=== PATIENT | female | born 1990 | race Caucasian/White ===

== ENCOUNTER 2016-08-28 23:02 | Inpatient (IN) | payer MEDICAID ==
[~2016-08-28] VITALS: Ht 162.6 cm; Wt 98.1 kg
[2016-08-28 23:20] VITALS: Ht 162.6 cm; Wt 98.1 kg
[2016-08-28] MEDS ORDERED: FERR325C PO (23:20)
[2016-08-28] MEDS ORDERED: PRENAT PO (23:20)
[2016-08-28] MEDS ORDERED: CALC600T5 PO (23:20)
[2016-08-28 23:21] VITALS: BP 129/72; PULSE 84; RESP 18
[2016-08-29] MEDS ORDERED: LIDOCAINE 1% (MPF) 30 ML INJ INJ PRN
[2016-08-29] MEDS ORDERED: BUTORPHANOL 2 MG INJ IV PRN
[2016-08-29] MEDS ORDERED: OXYTOCIN 30 UNITS/LR 500 ML IV SCH ×2
--- NOTE | 2016-08-29 00:10 | TRIAGE ---
OB Triage Datetime Report Generated by CPN: 08/29/2016 00:10 Datetime: 08/28/2016 23:35 Stage of : OB Triage Temperature Route: Oral Labor Evaluation Frequency: 4-5 Monitor Mode: External Duration (sec)2399: 80-150 Quality: Moderate Pattern: Normal: <= 5 Contractions in 10 Minutes Resting Tone [place]: Relaxed Heart Rate FHR Baseline Rate: 150 Monitor Mode: External US Variability: Moderate 6-25 bpm Accelerations: 15X15 Decelerations: None Category: Category I Pain Assessment Pain Scale: 6 Pain Presence: Intermittent Pain Type: Cramping; Pressure Pain Location: Abdomen Pain Relief Measures: Comfort Measures Datetime: 08/28/2016 23:23 Time of Arrival: 08/28/2016 23:23 EGA: 39.1 Arrived By: Wheelchair Arrived From: Home Chief Complaint: CXS FOR 2 DAYS, STRONGER SINCE 1999 Movement: Present Contractions: Regular Time Contractions Began: 08/28/2016 20:00 Contractions: Q5M Rupture of Membranes: Denies Vaginal Discharge: Denies Provider Notified: ROMY Initial Plan: EFM, ASSESSMENT, CALL MD FOR ORDE ERS Vaginal Exam Dilatation (cms): 4.0 Effacement (%): 50 Station: -2 Exam By: TAVARES Vaginal Bleeding: None Cervix, Consistency: Soft Cervix, Position: Anterior Presentation 'A': Cephalic Datetime: 08/28/2016 23:20 Assessment Type: Triage Maternal Assessment Level of Consciousness: Fully Conscious DTR's/Clonus: DTRs 2+; No Clonus Headache: Denies Blurred Vision: No Respiratory Effort: Unlabored; Regular Rhythm; Equal Expansion Breath Sounds, Left: Clear and Equal Breath Sounds, Right: Clear and Equal Nausea/Vomiting: Denies RUQ Epigastric Pain: Denies Lower Extremities Edema: None Upper Extremities Edema: None Facial Edema: None Fall Risk Assessment History of Falling: (0) No Secondary Diagnosis: (0) No Ambulatory Aid: (0) Bedrest/Nurse Assist IV Therapy: (0) No Gait: (0) Normal/Bedrest/Immobile Mental Status: (0) Oriented to Own Ability Fall Score: 0 Fall Risk Score Definition: No Risk: No action required Datetime: 08/28/2016 23:06 Membrane Status: Intact
[2016-08-29] MEDS: LACTATED RINGER'S 1,000 ML IV SCH ×4 (00:17→09:13)
[2016-08-29 00:51] LABS: ADD SCAN DIFF NO
[2016-08-29 00:53] LABS: BASOPHILS % 0.3 % (0.0-2.0); EOSINOPHILS # 0.1 10^3/ul (0.0-0.5); HEMATOCRIT 39.5 % (37.0-47.0); HEMOGLOBIN 13.2 g/dl (12.0-16.0); LYMPHOCYTES # 3.3 10^3/ul (0.8-2.9); LYMPHOCYTES % 23.8 % (15.0-51.0); MEAN CORPUSCULAR HGB CONC 33.4 g/dl (32.0-37.0); MEAN CORPUSCULAR VOLUME 80.8 fl (82.0-101.0); MEAN PLATELET VOLUME 10.7 fl (7.4-10.4); MONOCYTE # 1.1 10^3/ul (0.3-0.9); MONOCYTES % 7.9 % (0.0-11.0); NEUTROPHIL # 8.9 10^3/ul (1.6-7.5); NEUTROPHILS % 65.3 % (39.0-77.0); PLATELET COUNT 251 10^3/UL (140-415); RED BLOOD COUNT 4.89 10^6/ul (4.20-5.40); RED CELL DISTRIBUTION WIDTH 14.5 % (11.5-14.5); WHITE BLOOD COUNT 13.7 10^3/ul (4.8-10.8)
[2016-08-29 01:05] LABS: INR 0.93; PROTIME 12.5 Sec (12.2-14.2)
[2016-08-29 01:06] LABS: PARTIAL THROMBOPLASTIN TIME 26.4 Sec (25.0-35.0)
[2016-08-29] MEDS: ACETAMINOPHEN 325 MG TAB PO PRN ×2 (01:56→13:03)
[2016-08-29] MEDS ORDERED: LACTATED RINGER'S 1,000 ML IV PRN (02:00)
[2016-08-29] MEDS ORDERED: FENTAnyl 2MCG/ML-ROPIV 0.2% 100 ML ONE (02:21)
[2016-08-29] MEDS ORDERED: DIPHENHYDRAMINE 50 MG INJ IV PRN (05:00)
[2016-08-29] MEDS ORDERED: NALOXONE (0.4 MG/ML) INJ IV PRN (05:00)
[2016-08-29] MEDS ORDERED: ONDANSETRON 4 MG INJ IV PRN (05:00)
[2016-08-29] MEDS ORDERED: FENTAnyl 2MCG/ML-ROPIV 0.2% 100 ML BAG EPI SCH (05:00)
[2016-08-29] MEDS ORDERED: AMPICILLIN 2 GM/NS (PMX) 100 ML IVPB ONE (08:30)
[2016-08-29] MEDS ORDERED: GENTAMICIN 120 MG/NS (PMX) 100 ML IVPB STA (08:56)
[2016-08-29] MEDS ORDERED: CLINDAMYCIN 900 MG INJ IM ONE (09:30)
[2016-08-29] MEDS ORDERED: CLINDAMYCIN 900 MG/D5W (PMX) 50 ML IVPB SCH (09:30)
--- NOTE | 2016-08-29 09:48 | PN ---
Date/Time of Note Date/Time of Note DATE: 08/29/16 TIME: 09:42 OB Subjective Subjective Subjective Patient is 2 para 1 at 39+ weeks of gestation in active labor I was called to evaluate the patient for tachycardia of 180s heart rate with variable deceleration, no evidence of late deceleration, moderate variability Cervical exam 8 cm per nurse [place] regular every 2-3 minutes OB Objective HEENT: WNL Heart: Rhythm Normal Abdomen: WNL Cervical Dilatation: 8cm Membranes: Ruptured Accelerations: Accelerations Present Decelerations: Variable Decelerations Varibility: Moderate Contractions on Admission: < 5 Minutes Apart OB Assessment/Plan Reason for admission: active labor Other Assessment: Patient is in active labor with suspected chorioamnionitis Other plan: Internal scalp electrode placed Bolus 1 L of IV fluid Start triple antibiotics (amp/gent/clindamycin) SHERITA EVANS MD Aug 29, 2016 09:48
--- NOTE | 2016-08-29 10:49 | HP ---
Date/Time of Note Date/Time of Note DATE: 08/29/16 TIME: 10:47 OB - History Hx of Present Chief Complaint: contractions Estimated Due Date: September 11, 2016 : 2 Para: 1 Spontaneous : 0 Therapeutic : 0 Care: Good Care Ultrasounds: Normal mid trimester US Obstetrical Complications: None Medical Complications: None Past Family/Social History * Past Medical, Surgical, Family and Obstetric Histories reviewed from chart. GBS Status: Negative OB Admission Exam Vital Signs Vital Signs Vital Signs Date Time Temp Pulse Resp B/P Pulse Ox O2 Delivery O2 Flow Rate FiO2 08/28/16 23:21 98.0 84 18 129/72 Room Air Physical Exam HEENT: WNL Heart: Rhythm Normal Lungs: Clear Abdomen: WNL Extremities: Normal Cervical Dilatation: 4cm Effacement: 50% Station: -1 Heart Rate: 140's Varibility: Moderate Last 72 hours Lab Results CBC & BMP 08/28/16 23:50 OB Assessment/Plan Reason for admission: active labor Plan: Expectant Management JESSICA STANTON MD Aug 29, 2016 10:49
[2016-08-29] MEDS ORDERED: AMPICILLIN 1 GM/NS (PMX) 50 ML IVPB SCH (12:00)
--- NOTE | 2016-08-29 12:44 | LDN ---
Date/Time of Note Date/Time of Note DATE: 08/29/16 TIME: 12:42 Delivery Summary Weeks of Gestation 38 weeks and 1 day Placenta Delivered: Spontaneously Meconium: Light Episiotomy: No Perineal laceration: 0 Anesthesia type: Epidural Estimated blood loss: 300 Sponge & Needle done & correct: Yes All needle counts correct: Yes Any foreign bodies felt in the: No Problems: Infant Delivery Information Sex Infant Sex: male Apgars 1 Minute: 8 5 Minute: 9 Suctioning Nose & mouth suctioned at tej: Yes Delee suction performed: No Umbilical Cord Cord presentations: nuchal cord Nuchal cord present X: 1 Cord Blood was obtained: Yes Mother & Baby Disposition Disposition Mom & Baby to Maternity; Good: Yes JESSICA STANTON MD Aug 29, 2016 12:44
[2016-08-29 14:30] VITALS: BP 121/68; PULSE 97; RESP 18
[2016-08-29] MEDS ORDERED: DIBUCAINE 1% 30 GM OINT TOP PRN (14:30)
[2016-08-29] MEDS ORDERED: WITCH HAZEL/GLYCERIN PAD PR PRN (14:30)
[2016-08-29] MEDS ORDERED: ACETAMINOPHEN 325 MG TAB PO PRN (14:30)
[2016-08-29] MEDS ORDERED: CARBOPROST 250 MCG INJ IM PRN ×2 (14:30)
[2016-08-29] MEDS ORDERED: METHYLERGONOVINE 0.2 MG INJ IM PRN ×2 (14:30)
[2016-08-29] MEDS ORDERED: BENZOCAINE 20% 56 ML SPRAY TOP PRN (14:30)
[2016-08-29] MEDS ORDERED: OXYTOCIN 30 UNITS/LR 500 ML IV PRN ×2 (14:30)
[2016-08-29] MEDS ORDERED: LANOLIN 7 GM TUBE TOP PRN (14:30)
[2016-08-29] MEDS ORDERED: MISOPROSTOL 200 MCG TAB PR PRN ×2 (14:30)
[2016-08-29 15:00] VITALS: BP 116/57; PULSE 112; RESP 18
[2016-08-29 15:33] VITALS: BP_SYST 115; PULSE 112
[2016-08-29 16:00] VITALS: BP 112/61; PULSE 102; RESP 18
[2016-08-29] MEDS ORDERED: GENTAMICIN 80 MG/NS (PMX) 50 ML IVPB SCH (17:00)
[2016-08-29] MEDS: LACTATED RINGER'S 1,000 ML IV* SCH ×2 (17:42→22:03)
[2016-08-29] MEDS: IBUPROFEN 600 MG TAB PO SCH ×2 (17:43→23:56)
[2016-08-29] MEDS: AMPICILLIN/SULB 3 GM/NS (PMX) 100 ML IVPB SCH ×2 (17:43→23:56)
[2016-08-29 19:50] VITALS: BP 111/58; PULSE 98; RESP 19
[2016-08-29] MEDS: SENNA/DOCUSATE NA (8.6MG/50MG) TAB PO SCH (21:12)
[2016-08-30 00:05] VITALS: BP 102/57; PULSE 91; RESP 19
[2016-08-30 04:05] VITALS: BP 101/53; PULSE 85; RESP 19
[2016-08-30] MEDS: IBUPROFEN 600 MG TAB PO SCH ×4 (05:39→23:58)
[2016-08-30] MEDS: AMPICILLIN/SULB 3 GM/NS (PMX) 100 ML IVPB SCH ×4 (05:39→23:59)
[2016-08-30] MEDS: LACTATED RINGER'S 1,000 ML IV* SCH ×2 (06:03→14:03)
[2016-08-30 07:53] LABS: ADD SCAN DIFF NO
[2016-08-30 08:00] VITALS: BP 90/51; PULSE 70; RESP 16
[2016-08-30 08:01] LABS: BASOPHIL # 0.1 10^3/ul (0.0-0.1); BASOPHILS % 0.4 % (0.0-2.0); EOSINOPHILS # 0.2 10^3/ul (0.0-0.5); EOSINOPHILS % 1.5 % (0.0-7.0); HEMOGLOBIN 11.5 g/dl (12.0-16.0); LYMPHOCYTES # 3.4 10^3/ul (0.8-2.9); LYMPHOCYTES % 25.2 % (15.0-51.0); MEAN CORPUSCULAR HEMOGLOBIN 27.2 pg (29.0-33.0); MEAN CORPUSCULAR HGB CONC 32.9 g/dl (32.0-37.0); MEAN CORPUSCULAR VOLUME 82.7 fl (82.0-101.0); MEAN PLATELET VOLUME 11.2 fl (7.4-10.4); MONOCYTE # 0.9 10^3/ul (0.3-0.9); MONOCYTES % 6.9 % (0.0-11.0); NEUTROPHIL # 8.8 10^3/ul (1.6-7.5); NEUTROPHILS % 64.9 % (39.0-77.0); PLATELET COUNT 198 10^3/UL (140-415); RED BLOOD COUNT 4.23 10^6/ul (4.20-5.40); RED CELL DISTRIBUTION WIDTH 14.9 % (11.5-14.5); WHITE BLOOD COUNT 13.6 10^3/ul (4.8-10.8)
[2016-08-30] MEDS: SENNA/DOCUSATE NA (8.6MG/50MG) TAB PO SCH ×2 (08:05→21:28)
[2016-08-30] MEDS: ACETAMINOPHEN/CODEINE #3 TAB PO PRN ×2 (08:05→14:34)
--- NOTE | 2016-08-30 14:35 | QN ---
Documentation Comment No complaint Afebrile VSS Fundus Firm Lochia Scant PPD #1 Stable Continue present care. JESSICA STANTON MD Aug 30, 2016 14:35
[2016-08-30 16:00] VITALS: BP 112/59; PULSE 95; RESP 16
[2016-08-30 19:30] VITALS: BP 119/79; PULSE 79; RESP 18
[2016-08-31 04:27] VITALS: BP 103/58; PULSE 95; RESP 18
[2016-08-31] MEDS: ACETAMINOPHEN/CODEINE #3 TAB PO PRN (04:27)
[2016-08-31] MEDS: IBUPROFEN 600 MG TAB PO SCH ×4 (05:34→23:38)
[2016-08-31] MEDS: AMPICILLIN/SULB 3 GM/NS (PMX) 100 ML IVPB SCH ×2 (05:49→12:17)
[2016-08-31 08:00] VITALS: BP 94/55; PULSE 85; RESP 18
[2016-08-31 08:04] LABS: ADD SCAN DIFF NO
[2016-08-31 08:09] LABS: BASOPHIL # 0.1 10^3/ul (0.0-0.1); BASOPHILS % 0.5 % (0.0-2.0); EOSINOPHILS # 0.3 10^3/ul (0.0-0.5); EOSINOPHILS % 2.7 % (0.0-7.0); HEMATOCRIT 35.2 % (37.0-47.0); HEMOGLOBIN 11.2 g/dl (12.0-16.0); LYMPHOCYTES # 3.4 10^3/ul (0.8-2.9); LYMPHOCYTES % 27.6 % (15.0-51.0); MEAN CORPUSCULAR HEMOGLOBIN 26.7 pg (29.0-33.0); MEAN CORPUSCULAR HGB CONC 31.8 g/dl (32.0-37.0); MEAN PLATELET VOLUME 10.9 fl (7.4-10.4); MONOCYTE # 0.8 10^3/ul (0.3-0.9); MONOCYTES % 6.3 % (0.0-11.0); NEUTROPHIL # 7.6 10^3/ul (1.6-7.5); NEUTROPHILS % 61.4 % (39.0-77.0); PLATELET COUNT 200 10^3/UL (140-415); RED BLOOD COUNT 4.19 10^6/ul (4.20-5.40); RED CELL DISTRIBUTION WIDTH 14.9 % (11.5-14.5); WHITE BLOOD COUNT 12.3 10^3/ul (4.8-10.8)
[2016-08-31] MEDS: SENNA/DOCUSATE NA (8.6MG/50MG) TAB PO SCH ×2 (08:57→21:00)
[2016-08-31] MEDS ORDERED: DIPHTH/TET/ACEL PERTUSS (ADULT) 0.5 ML VIAL IM* ONE (09:00)
--- NOTE | 2016-08-31 13:35 | DS ---
Date/Time of Note Date/Time of Note DATE: 08/31/16 TIME: 13:34 Obstetrical Discharge Record Final Diagnosis Final Diagnosis: Term delivered Vaginal Delivery Obstetrical Delivery: Spontaneous Condition on Discharge Physical Assessment Voiding: Yes Bowel Movement: Yes Breast: Soft, non-tender Calf Tenderness: No Patient Condition: Stable JESSICA STANTON MD Aug 31, 2016 13:35
[2016-08-31] MEDS: CEFTRIAXONE 1 GM/50 ML (PMX) 50 ML IVPB SCH (15:22)
[2016-08-31 15:45] VITALS: BP 110/60; PULSE 86
[2016-08-31 20:00] VITALS: BP 118/59; PULSE 92; RESP 18
[2016-08-31] MEDS: SOD CHLORIDE 0.45% 1,000 ML IV SCH ×2 (20:00→23:11)
[2016-09-01 04:00] VITALS: BP 109/66; PULSE 77; RESP 18
[2016-09-01] MEDS: SOD CHLORIDE 0.45% 1,000 ML IV SCH (05:56)
[2016-09-01] MEDS: IBUPROFEN 600 MG TAB PO SCH ×2 (05:57→11:32)
[2016-09-01 08:55] VITALS: BP 115/73; PULSE 98; RESP 20
[2016-09-01] MEDS: SENNA/DOCUSATE NA (8.6MG/50MG) TAB PO SCH (09:26)
[2016-09-01] MEDS: CEFTRIAXONE 1 GM/50 ML (PMX) 50 ML IVPB SCH (14:00)
== END 2016-09-01 15:05 | disposition home or self-care (01) | DRG 775 ==
LOC: OBT 23:02 → L-D 23:02 → OBT 23:32 → L-D 23:34 → PP1 08-29 13:59
PROVIDERS: ADMIT Obstetrics & Gynecology; ATTEND Obstetrics & Gynecology
PROC: 4A1HX4Z Monitoring of Products of Conception, Cardiac Electrical Activity, External Approach (ICD-10-PCS; 2016-08-28)
PROC: 10E0XZZ Delivery of Products of Conception, External Approach (ICD-10-PCS; principal; 2016-08-29)
DX: O69.1XX0 Labor and delivery complicated by cord around neck, with compression, not applicable or unspecified (principal); O76 Abnormality in fetal heart rate and rhythm complicating labor and delivery; Z3A.39 39 weeks gestation of pregnancy; Z37.0 Single live birth
CPT/HCPCS: 62319; 85025; 85610; 85730; 86592; 86900; 86901; 87070; 87086; 87340; 88307; 90715; 99464; G0463; J0290; J0295; J0696; J1580; J2590; J3010; J7120